=== PATIENT | female | born 1995 | race Caucasian/White ===

== ENCOUNTER 2018-07-24 12:15 | Emergency (ER) | payer OTHER ==
--- NOTE | 2018-07-24 12:17 | EDPHY ---
H & P Time Seen by Provider: 07/24/18 12:17 HPI/ROS: CHIEF COMPLAINT: Minor head injury HISTORY OF PRESENT ILLNESS: The patient presents to the ED after minor head injury. She was snowboarding and fell back striking her head. She was wearing a helmet. There is no loss of consciousness. She had 1 episode of vomiting. She denies any neck pain, numbness, weakness, abdominal pain, chest pain or difficulty breathing. She did have some mild amnesia which has resolved. She denies a significant headache currently. She presents the emergency department just to "get checked out." REVIEW OF SYSTEMS: A comprehensive 10 point review of systems is otherwise negative aside from elements mentioned in the history of present illness. Source: Patient Exam Limitations: No limitations - Family History Significant Family History: No pertinent family hx - Social History Smoking Status: Never smoked - Physical Exam Exam: General Appearance: Alert, no distress Head: Atraumatic Eyes: Pupils equal, round, reactive ENT, Mouth: No hemotympanum, no oral trauma Neck: Nontender, trachea midline Respiratory: No chest wall tender, no subcutaneous air, lungs clear bilaterally Cardiovascular: Regular rate and rhythm Abdomen: Abdomen is soft and nontender, pelvis stable Skin: No lacerations, No abrasion Back: No midline T/L/S pain Extremities: Nontender, full range of motion Neurological: A&Ox3, normal motor function, normal sensory exam Constitutional: Initial Vital Signs Temperature (C) 36.6 C 07/24/18 12:16 Heart Rate 93 07/24/18 12:16 Respiratory Rate 16 07/24/18 12:16 Blood Pressure 126/88 H 07/24/18 12:16 O2 Sat (%) 96 07/24/18 12:16 O2 Delivery Mode Room Air Allergies/Adverse Reactions: acetaminophen [From Percocet] Allergy (Verified 07/24/18 12:20) oxycodone [From Percocet] Allergy (Verified 07/24/18 12:20) percocet Allergy (Uncoded 07/24/18 12:20) Home Medications: Medication Instructions Recorded NK [No Known Home Meds] 07/24/18 Medical Decision Making ED Course/Re-evaluation: Patient is well-appearing with symptoms of a very mild concussion syndrome. I doubt intracranial hemorrhage or skull fracture. CT scan is not indicated. The patient is comfortable being discharged home with customary aftercare instructions. She is given return precautions and a concussion care sheet. Departure - Departure Disposition: Home, Routine, Self-Care Clinical Impression: Concussion Condition: Good Instructions: Concussion (ED) Additional Instructions: 1. Tylenol and ibuprofen as needed for pain. 2. Return to the ED for any severe headache, vomiting, numbness, weakness or other concerns. 3. Concussion aftercare as directed. 4. Please follow up with our concussion specialist Dr. Elder for any ongoing mild headache, cognitive changes, visual changes or other concerns. Referrals: Janice Elder MD [Medical Doctor] - As per Instructions
[2018-07-24 12:20] VITALS: BP 126/88
== END 2018-07-24 12:42 | disposition home or self-care (01) ==
DX: S06.0X0A Concussion without loss of consciousness, initial encounter (principal); V00.311A Fall from snowboard, initial encounter; Y93.23 Activity, snow (alpine) (downhill) skiing, snowboarding, sledding, tobogganing and snow tubing; Y92.838 Other recreation area as the place of occurrence of the external cause